=== PATIENT | female | born 1990 | race Caucasian/White ===

== ENCOUNTER 2019-02-04 02:57 | Emergency (ER) | payer OTHER ==
[~2019-02-04] VITALS: Ht 175.3 cm; Wt 86.6 kg
[2019-02-04 03:05] VITALS: Ht 175.3 cm; Wt 86.6 kg
[2019-02-04 04:25] VITALS: BP 121/68
== END 2019-02-04 04:25 | disposition home or self-care (01) ==
LOC: ED 02:57
DX: L97.909 Non-pressure chronic ulcer of unspecified part of unspecified lower leg with unspecified severity (principal); J45.909 Unspecified asthma, uncomplicated

== ENCOUNTER 2019-02-12 23:49 | Emergency (ER) | payer OTHER ==
[~2019-02-12] VITALS: Ht 175.3 cm; Wt 88.5 kg
[2019-02-12 23:56] VITALS: BP 116/83; Ht 175.3 cm; Wt 88.5 kg
== END 2019-02-13 03:01 | disposition left against medical advice (07) ==
LOC: ED 23:49
DX: Z53.21 Procedure and treatment not carried out due to patient leaving prior to being seen by health care provider (principal)

== ENCOUNTER 2019-03-05 07:25 | Emergency (ER) | payer OTHER ==
[~2019-03-05] VITALS: Ht 175.3 cm; Wt 86.2 kg
[2019-03-05 07:29] VITALS: Ht 175.3 cm; Wt 86.2 kg
[2019-03-05 08:09] VITALS: BP 119/72
== END 2019-03-05 08:09 | disposition home or self-care (01) ==
LOC: ED 07:25
DX: R21 Rash and other nonspecific skin eruption (principal); L29.9 Pruritus, unspecified; F17.210 Nicotine dependence, cigarettes, uncomplicated; F15.10 Other stimulant abuse, uncomplicated; J45.909 Unspecified asthma, uncomplicated
CPT/HCPCS: 99406

== ENCOUNTER 2020-06-02 00:48 | Emergency (ER) | payer OTHER ==
[~2020-06-02] VITALS: Ht 175.3 cm; Wt 79.8 kg
[2020-06-02 01:05] VITALS: Ht 175.3 cm; Wt 79.8 kg
[2020-06-02 03:45] VITALS: BP 119/68
== END 2020-06-02 03:45 | disposition left against medical advice (07) ==
LOC: ED 00:48
DX: Z53.21 Procedure and treatment not carried out due to patient leaving prior to being seen by health care provider (principal)

== ENCOUNTER 2020-10-10 21:23 | Emergency (ER) | payer OTHER ==
[~2020-10-10] VITALS: Ht 175.3 cm; Wt 77.1 kg
[2020-10-10 21:33] VITALS: Ht 175.3 cm; Wt 77.1 kg
[2020-10-10 22:05] VITALS: BP 147/85
== END 2020-10-10 22:05 | disposition home or self-care (01) ==
LOC: ED 21:23
DX: K04.7 Periapical abscess without sinus (principal); J45.909 Unspecified asthma, uncomplicated; Z88.8 Allergy status to other drugs, medicaments and biological substances
CPT/HCPCS: J1885